=== PATIENT | female | born 1995 | race American Indian/Alaskan Native ===

== ENCOUNTER 2020-08-05 00:08 | Emergency (ER) | payer MEDICAID, OTHER ==
[2020-08-05] MEDS ORDERED: Ondansetron 4 MG Tab.DIS PO ONE (00:09)
[2020-08-05] MEDS ORDERED: Ondansetron 4 MG/2 ML SDV IVPUSH ONE (00:13)
[2020-08-05] MEDS ORDERED: Famotidine 20 MG/2 ML SDV IVPUSH ONE (00:13)
[2020-08-05] MEDS ORDERED: Sodium Chloride 0.9% 1,000 ML IV ONE (00:13)
[2020-08-05] MEDS ORDERED: HYDROmorphone 1 MG/ML Syringe IVPUSH ONE (00:34)
[2020-08-05] MEDS ORDERED: Iopamidol 612 MG/ML 100 ML Bottle IVPUSH ONE (00:49)
[2020-08-05 00:51] LABS: ANION GAP 13.8 mEq/L (7-13); CHLORIDE,CL 105 mmol/L (98-107); SODIUM,NA 142 mmol/L (136-145)
--- NOTE | 2020-08-05 02:21 | CT ---
PROCEDURE INFORMATION: Exam: CT Abdomen And Pelvis With Contrast Exam date and time: 08/05/2020 1:30 AM Age: 25 years old Clinical indication: Abdominal pain; Localized; Upper; Prior surgery; Surgery date: 6+ months; Surgery type: HX ; Additional info: Abdominal pain, [id number] TECHNIQUE: Imaging protocol: Computed tomography of the abdomen and pelvis with contrast. Radiation optimization: All CT scans at this facility use at least one of these dose optimization techniques: automated exposure control; mA and/or kV adjustment per patient size (includes targeted exams where dose is matched to clinical indication); or iterative reconstruction. Contrast material: ISOVUE 300; Contrast volume: 75 ml; Contrast route: INTRAVENOUS (IV); COMPARISON: No relevant prior studies available. FINDINGS: Lungs: Hypoventilatory changes in the dependent lungs. A mild hypoventilatory changes in the dependent lungs, right slightly greater than left. Liver: Intra hepatic branching lucencies may be due to intrahepatic cholestasis or due to prominent periportal fat. Hepatomegaly at 22.0 cm longitudinal dimension. Gallbladder and bile ducts: Tiny layering calcifications in the dependent gallbladder. Common bile duct dilated to 9.0 mm. No ductal calcifications. Cannot exclude ductal debris. Please correlate with patient's symptoms and serum bilirubin. Pancreas: Normal. No ductal dilation. Spleen: Normal. No splenomegaly. Adrenal glands: Normal. No mass. Kidneys and ureters: Normal. No hydronephrosis. Stomach and bowel: Unremarkable. No obstruction. No mucosal thickening. Appendix: No evidence of appendicitis. Intraperitoneal space: Unremarkable. No free air. No significant fluid collection. Vasculature: Unremarkable. No abdominal aortic aneurysm. Lymph nodes: Unremarkable. No enlarged lymph nodes. Urinary bladder: Bladder is collapsed without bladder calcifications. Reproductive: Dominant left ovarian follicle/cyst at 6.0 cm. Uterus is retroverted. Bones/joints: Unremarkable. No acute fracture. Soft tissues: Unremarkable. IMPRESSION: 1. Layering punctate gallstones/sludge. Common bile duct at dilated at 9.0 mm. Cannot exclude intraluminal sludge/debris. 2. Intra hepatic cholestasis versus prominent periportal fat. 3. Hepatomegaly at 22.0 cm longitudinal dimension. 4. 6.0 cm left ovarian cyst. No free fluid. 5. Mild hypoventilatory changes at bilateral lung bases right slightly greater than left.
--- NOTE | 2020-08-05 02:32 | EDM.PDOC ---
ED HPI GENERAL MEDICAL PROBLEM - General Chief Complaint: Abdominal Pain Stated Complaint: vommiting stomache burning Time Seen by Provider: 08/05/20 00:20 Source of Information: Reports: Patient History Limitations: Reports: No Limitations - History of Present Illness INITIAL COMMENTS - FREE TEXT/NARRATIVE: ED with c/o severe abdominal pain, nausea and vomiting after eating cheeseburger tonight. Hx gallbladder problems in past with , told to wtch what she eats. prior mider symptoms few months prior. No fever chills or diarrhea. Abdomen Pain Score (Numeric/FACES): 10 - Related Data Allergies Allergy/AdvReac Type Severity Reaction Status Date / Time No Known Allergies Allergy Verified 08/05/20 00:23 Past Medical History - Infectious Disease History Infectious Disease History: Reports: Novel Coronavirus Social & Family History - Family History Family Medical History: No Pertinent Family History - Tobacco Use Tobacco Use Status *Q: Current Every Day Tobacco User Years of Tobacco use: 3 Packs/Tins Daily: 0.4 - Caffeine Use Caffeine Use: Reports: Coffee - Recreational Drug Use Recreational Drug Use: No ED ROS GENERAL - Review of Systems Review Of Systems: See Below ED EXAM, GI/ABD - Physical Exam Exam: See Below Exam Limited By: No Limitations General Appearance: Alert, Moderate Distress Eyes: Bilateral: EOMI Ears: Normal External Exam, Hearing Grossly Normal Nose: Normal Inspection Throat/Mouth: Normal Inspection Head: Atraumatic, Normocephalic Neck: Normal Inspection Respiratory/Chest: No Respiratory Distress, Lungs Clear, Normal Breath Sounds Cardiovascular: Regular Rate, Rhythm GI/Abdominal Exam: Normal Bowel Sounds, Soft, Tender (mid epigastric RUQ) Extremities: Normal Range of Motion Neurological: Alert, Oriented, Normal Cognition Skin Exam: Warm, Dry, Intact, Normal Color Course - Vital Signs Last Recorded V/S: Last Vital Signs Temp 97.7 F 08/05/20 00:15 Pulse 66 08/05/20 00:15 Resp 19 08/05/20 00:15 BP 143/95 H 08/05/20 00:15 Pulse Ox 100 08/05/20 00:15 - Orders/Labs/Meds Labs: Laboratory Tests 08/05/20 08/05/20 08/05/20 Range/Units 00:19 00:19 00:19 WBC 13.2 H (5.0-10.0) 10^3/uL RBC 5.16 (4.2-5.4) 10^6/uL Hgb 12.4 (12.0-16.0) g/dL Hct 39.4 (37.0-47.0) % MCV 76.4 L (80-100) fL MCH 24.0 L (27.0-34.0) pg MCHC 31.5 L (33.0-35.0) g/dL Plt Count 489 H (150-450) 10^3/uL Neut % (Auto) 63.6 (42.2-75.2) % Lymph % (Auto) 30.1 (20.5-50.1) % [place] % (Auto) 4.7 (2-8) % Eos % (Auto) 1.4 (1.0-3.0) % Baso % (Auto) 0.2 (0.0-1.0) % Sodium 142 (136-145) mmol/L Potassium 3.8 (3.5-5.1) mmol/L Chloride 105 (98-107) mmol/L Carbon Dioxide 27 (21-32) mmol/L Anion Gap 13.8 H (7-13) mEq/L BUN 16 (7-18) mg/dL Creatinine 0.99 (0.55-1.02) mg/dL Est Cr Clr Drug Dosing 70.61 mL/min Estimated GFR (MDRD) > 60 BUN/Creatinine Ratio 16.2 (No establ ref range) Glucose 107 H (74-99) mg/dL Lactic Acid 0.9 (0.4-2.0) mmol/L Calcium 9.3 (8.5-10.1) mg/dL Total Bilirubin 0.2 (0.2-1.0) mg/dL AST 19 (15-37) U/L ALT 53 (14-59) U/L Alkaline Phosphatase 112 (46-116) U/L Total Protein 8.4 H (6.4-8.2) g/dL Albumin 3.6 (3.4-5.0) g/dL Globulin 4.8 Albumin/Globulin Ratio 0.8 Amylase 55 (25-115) U/L Lipase 143 (73-393) U/L HCG, Qual 08/05/20 Range/Units 00:19 WBC (5.0-10.0) 10^3/uL RBC (4.2-5.4) 10^6/uL Hgb (12.0-16.0) g/dL Hct (37.0-47.0) % MCV (80-100) fL MCH (27.0-34.0) pg MCHC (33.0-35.0) g/dL Plt Count (150-450) 10^3/uL Neut % (Auto) (42.2-75.2) % Lymph % (Auto) (20.5-50.1) % [place] % (Auto) (2-8) % Eos % (Auto) (1.0-3.0) % Baso % (Auto) (0.0-1.0) % Sodium (136-145) mmol/L Potassium (3.5-5.1) mmol/L Chloride (98-107) mmol/L Carbon Dioxide (21-32) mmol/L Anion Gap (7-13) mEq/L BUN (7-18) mg/dL Creatinine (0.55-1.02) mg/dL Est Cr Clr Drug Dosing mL/min Estimated GFR (MDRD) BUN/Creatinine Ratio (No establ ref range) Glucose (74-99) mg/dL Lactic Acid (0.4-2.0) mmol/L Calcium (8.5-10.1) mg/dL Total Bilirubin (0.2-1.0) mg/dL AST (15-37) U/L ALT (14-59) U/L Alkaline Phosphatase (46-116) U/L Total Protein (6.4-8.2) g/dL Albumin (3.4-5.0) g/dL Globulin Albumin/Globulin Ratio Amylase (25-115) U/L Lipase (73-393) U/L HCG, Qual Negative Meds: Medications Discontinued Medications Generic Name Dose Route Start Last Admin Trade Name Freq PRN Reason Stop Dose Admin Famotidine 20 mg 08/05/20 00:13 08/05/20 00:22 Famotidine 20 Mg/2 Ml Sdv IVPUSH 08/05/20 00:14 20 mg ONETIME ONE Administration Hydromorphone HCl 1 mg 08/05/20 00:34 08/05/20 00:39 Hydromorphone 1 Mg/Ml Syringe IVPUSH 08/05/20 00:35 1 mg ONETIME ONE Administration Sodium Chloride 1,000 mls @ 999 mls/hr 08/05/20 00:13 08/05/20 00:25 Normal Saline IV 08/05/20 01:13 999 mls/hr .BOLUS ONE Administration Iopamidol 100 ml 08/05/20 00:49 08/05/20 01:35 Iopamidol 612 Mg/Ml 100 Ml Bottle IVPUSH 08/05/20 00:50 75 ml ONETIME ONE Administration Ondansetron HCl 4 mg 08/05/20 00:13 08/05/20 00:20 Ondansetron 4 Mg/2 Ml Sdv IVPUSH 08/05/20 00:14 4 mg ONETIME ONE Administration - Re-Assessments/Exams Free Text/Narrative Re-Assessment/Exam: 08/05/20 02:41 pain and nausea resolved. Departure - Departure Time of Disposition: 02:32 Disposition: Home, Self-Care 01 Condition: Good Clinical Impression: Cholelithiasis Qualifiers: Cholelithiasis location: gallbladder Cholecystitis presence: without cholecystitis Biliary obstruction: without biliary obstruction Qualified Code(s): K80.20 - Calculus of gallbladder without cholecystitis without obstruction - Discharge Information *PRESCRIPTION DRUG MONITORING PROGRAM REVIEWED*: No *COPY OF PRESCRIPTION DRUG MONITORING REPORT IN PATIENT TREE: No Instructions: Cholelithiasis, [id number] Forms: ED Department Discharge Additional Instructions: avoid fats, greasy, or fried foods bland diet follow up with primary care for referral to surgery for consult zofran 4mg ODT every 4 hours as needed for nausea Sepsis Event Note (ED) - Evaluation Sepsis Screening Result: No Definite Risk - Focused Exam Vital Signs: Vital Signs Temp Pulse Resp BP Pulse Ox 08/05/20 00:15 97.7 F 66 19 143/95 H 100
[2020-08-05] MEDS ORDERED: Ondansetron 4 MG Tab.DIS ONE (02:38)
== END 2020-08-05 02:42 | disposition home or self-care (01) ==
LOC: DL.ED 00:08
DX: K80.20 Calculus of gallbladder without cholecystitis without obstruction (principal); F17.210 Nicotine dependence, cigarettes, uncomplicated
CPT/HCPCS: 36415; 74177; 80053; 82150; 83605; 83690; 84703; 85025; 96374; 96375; 99284; A9270; J1170; J2405; J3490; J7030; Q9967

== ENCOUNTER 2021-11-27 18:52 | Emergency (ER) | payer MEDICAID ==
[2021-11-27 20:27] LABS: ANION GAP 14.1 mEq/L (7-13)
[2021-11-27] MEDS ORDERED: Misoprostol 400 MCG (4 X 100 MCG TAB) RECTAL ONE (22:15)
== END 2021-11-27 23:50 | disposition home or self-care (01) ==
LOC: DL.ED 18:52
DX: O03.4 Incomplete spontaneous abortion without complication (principal); Z86.16 Personal history of COVID-19
CPT/HCPCS: 36415; 76801; 80053; 83735; 84702; 85025; 86850; 86900; 86901; 99284; A9270

== ENCOUNTER 2023-12-02 14:23 | Emergency (ER) | payer MEDICAID ==
[2023-12-02] MEDS: Sodium Chloride 0.9% 1,000 ML IV SCH (14:50)
[2023-12-02] MEDS: Ketorolac 30 MG/ML SDV IVPUSH ONE (14:55)
[2023-12-02] MEDS: HYDROmorphone 1 MG/ML Syringe IVPUSH ONE (14:55)
[2023-12-02] MEDS: Diazepam 5 MG Tab PO ONE (14:55)
[2023-12-02] MEDS: Take Home: Acetaminophen/HYDROcodone 325-5 MG, 5 Tab Pack PO ONE (16:49)
== END 2023-12-02 17:00 | disposition home or self-care (01) ==
LOC: DL.ED 14:23
DX: M54.50 Low back pain, unspecified (principal); Z86.16 Personal history of COVID-19
CPT/HCPCS: 96374; 96375; 99283; A9270; J1170; J1885; J7030

== ENCOUNTER 2024-02-27 20:11 | Emergency (ER) | payer MEDICAID ==
[2024-02-27 21:05] LABS: APPEARANCE,URINE SLIGHTLY CLOUDY (CLEAR); BILIRUBIN,URINE NEGATIVE (NEGATIVE); COLOR,URINE YELLOW (YELLOW); GLUCOSE,URINE NEGATIVE (NEGATIVE); KETONES,URINE NEGATIVE (NEGATIVE); LEUKOCYTE ESTERASE,URINE MODERATE (NEGATIVE); NITRITE,URINE NEGATIVE (NEGATIVE); OCCULT BLOOD,URINE TRACE-INTACT (NEGATIVE); PH,URINE 5.5 (5.0-9.0); PROTEIN,URINE NEGATIVE (NEGATIVE); UROBILINOGEN,URINE 0.2 mg/dL (0.2-1.0)
[2024-02-27 21:12] LABS: AMORPHOUS SEDIMENT,URINE MODERATE /HPF (NOT SEEN); BACTERIA,URINE MODERATE /HPF (0-FEW/HPF); EPITHELIAL CELLS,URINE MODERATE /HPF (NOT SEEN); MUCUS,URINE MODERATE /LPF (NOT SEEN); RBC,URINE 0-5 /HPF (0-5); WBC,URINE 30-40 /HPF (0-5/HPF)
[2024-02-27] MEDS: Sulfamethoxazole/Trimethoprim 800-160 MG Tab PO ONE (21:53)
== END 2024-02-27 21:54 | disposition home or self-care (01) ==
LOC: DL.ED 20:11
DX: N30.00 Acute cystitis without hematuria (principal); Z79.899 Other long term (current) drug therapy; Z86.16 Personal history of COVID-19
CPT/HCPCS: 81001; 87086; 99284; A9270